=== PATIENT | male | born 1940 | race Caucasian/White ===

== ENCOUNTER 2016-07-21 19:53 | Emergency (ER) | payer BC ==
[2016-07-21] MEDS ORDERED: ACETAMINOPHEN 500 MG TABLET PO STA (20:46)
[2016-07-21] MEDS ORDERED: cefTRIAXone 1 GM VIAL IM STA (20:46)
[2016-07-21] MEDS ORDERED: ACETAMINOPHEN 500 MG TABLET PO ONE (20:56)
[2016-07-21] MEDS ORDERED: LIDOCAINE 1% 2 ML VIAL ONE (20:56)
[2016-07-21] MEDS ORDERED: cefTRIAXone 1 GM VIAL ONE (20:56)
== END 2016-07-21 21:04 | disposition home or self-care (01) ==
DX: S91.051D Open bite, right ankle, subsequent encounter (principal); L03.115 Cellulitis of right lower limb; W54.0XXD Bitten by dog, subsequent encounter; E11.9 Type 2 diabetes mellitus without complications; N28.9 Disorder of kidney and ureter, unspecified
CPT/HCPCS: 96372; 99283; A9270

== ENCOUNTER 2016-07-28 13:13 | Emergency (ER) | payer BC ==
[2016-07-28 13:26] VITALS: BP 159/91
--- NOTE | 2016-07-28 13:29 | ED Physician Documentation ---
PD HPI WOUND RECHECK - Stated complaint Stated Complaint: RECHECK DOG BITE - Chief complaint Chief Complaint: Laceration - Histroy obtained from History obtained from: Patient - History of Present Illness Location: Right Lower Extremity Timing - onset: How many days ago (9) Recently seen: Emergency Dept (Seen here one week ago.) - Treatment prior to arrival Treatment prior to arrival: Has been taking Augmentin twice daily. - Additional information Additional information: The patient is a 75-year-old insulin-dependent diabetic male who presents for recheck of a dog bite wound to his right lower leg. He was bitten by a dog 9 days ago in [place], just prior to coming to [facility]. He was seen in the emergency department in [place] 9 days ago, and was started on Augmentin. 7 days ago he was seen in the emergency department here because of increased swelling. He was given an injection of Rocephin and advised to continue taking Augmentin as previously prescribed. He returns to the emergency department now for wound check and requests prescription for a few more days of Augmentin. He reports that the wound is much better than it was one week ago, although it continues to drain serous fluid. He denies fever. His blood sugars have been running in the normal range. His vaccinations are up-to-date. Review of Systems Constitutional: denies: Fever Respiratory: denies: Dyspnea GI: denies: Nausea, Vomiting Skin: reports: Bite / sting (Right lower leg.) Musculoskeletal: reports: Extremity swelling (improving.). denies: Back pain Neurologic: denies: Focal weakness, Numbness PD PAST MEDICAL HISTORY - Past Medical History Endocrine/Autoimmune: Type 2 diabetes : Renal insuffiency - Present Medications Home Medications: Ambulatory Orders Medication Instructions Recorded Confirmed Amox/Clav 875/125 [Augmentin 1 tab PO BID 07/21/16 07/28/16 875/125] Enalapril [Vasotec] 5 mg PO DAILY 07/21/16 07/28/16 Insulin Degludec [Tresiba 19 units SQ DAILY 07/21/16 07/28/16 Flextouch U-100] Insulin Lispro [Humalog] 30 units SQ DAILY 07/21/16 07/28/16 Amox/Clav 875/125 [Augmentin] 1 each PO Q12H #10 tablet 07/28/16 - Allergies Allergies/Adverse Reactions: Allergies Allergy/AdvReac Type Severity Reaction Status Date / Time No Known Drug Allergies Allergy Verified 07/21/16 20:06 - Social History Does the pt smoke?: No Smoking Status: Never smoker Does the pt drink ETOH?: No Does the pt have substance abuse?: No PD ED PE NORMAL - Vitals Vital signs reviewed: Yes (hypertensive initially) - General General: Alert and oriented X 3, Well developed/nourished - HEENT HEENT: Atraumatic - Respiratory Respiratory: No respiratory distress - Derm Derm: No rash - Extremities Extremities: Other (There is a large area of ecchymosis of the anterior lateral aspect of the right lower leg. An open wound remains, with about one half centimeter gap between wound edges. There is no warmth to palpation of the wound, and no purulent drainage. Distal neurovascular is intact.) - Neuro Neuro: Alert and oriented X 3, No motor deficit, No sensory deficit Results - Vitals Vitals: Oxygen O2 Source Room air PD MEDICAL DECISION MAKING - ED course Complexity details: reviewed old records, considered differential, d/w patient, d/w family ED course: The patient presents with a healing infected dog bite to the right lower leg. He has been taking Augmentin for the past 8 days, and the wound has been improving during that time. Because of his history of insulin-dependent diabetes and continued drainage from the wound, I agreed to prescribe 5 more days of Augmentin therapy. I discussed with him and his potentially worrisome signs or symptoms that should prompt reevaluation. Departure - Departure Disposition: 01 Home, Self Care Clinical Impression: Encounter for wound re-check Condition: Stable Instructions: ED Bite Dog Prescriptions: Amox/Clav 875/125 [Augmentin] 1 each PO Q12H #10 tablet Comments: Keep your right leg elevated as much the time as possible. Continue using Augmentin twice daily as prescribed. Eat probiotic yogurt while on antibiotic therapy. Return to the emergency department if you develop increasing redness, swelling, or otherwise worsening signs of infection. Discharge Date/Time: 07/28/16 13:38
== END 2016-07-28 13:38 | disposition home or self-care (01) ==
LOC: ED 13:13
DX: S81.851A Open bite, right lower leg, initial encounter (principal); L08.9 Local infection of the skin and subcutaneous tissue, unspecified; W54.0XXA Bitten by dog, initial encounter; E11.9 Type 2 diabetes mellitus without complications; Z79.4 Long term (current) use of insulin
CPT/HCPCS: 99283